=== PATIENT | female | born 1960 | race Caucasian/White ===

== ENCOUNTER 2018-01-03 14:47 | Emergency (ER) | payer BC ==
[~2018-01-03] VITALS: Ht 162.6 cm; Wt 63.0 kg
[~2018-01-03 14:47] MED LIST: HYDROCHLORO25 MG/TAB PO; LANTUS100 MG/ML SC
[2018-01-03] MEDS ORDERED: CIPROFLOXACN500 MG PO (16:26)
[2018-01-03] MEDS ORDERED: DOXYCYCL HYC100 MG PO (16:26)
[2018-01-03 16:38] VITALS: BP 153/89
== END 2018-01-03 16:45 | disposition home or self-care (01) | DRG 603 ==
LOC: ED 14:47
DX: L03.113 Cellulitis of right upper limb (principal); S61.431A Puncture wound without foreign body of right hand, initial encounter; Y93.89 Activity, other specified; W56.51XA Bitten by other fish, initial encounter; Y92.9 Unspecified place or not applicable

== ENCOUNTER → 2018-05-22 | Outpatient (REF) | payer BC ==
[~2018-05-22] MED LIST changes: +CIPROFLOXACN500 MG PO; +DOXYCYCL HYC100 MG PO
== END | disposition home or self-care (01) | DRG 204 ==
LOC: DI 07:27
PROVIDERS: ATTEND Nurse Practitioner
DX: R05 Cough (principal)